=== PATIENT | female | born 1970 | race American Indian/Alaskan Native ===

== ENCOUNTER 2021-11-28 10:01 | Outpatient (CLI) | payer OTHER ==
--- NOTE | 2021-11-28 13:31 | XRay Report ---
Cervical spine 2 views INDICATION: Neck pain FINDINGS: Endplate degenerative changes small anterior posterior disc osteophytes at C5-C6. No prever tebral soft tissue swelling is seen. Alignment appears normal. Facet degenerative changes seen throug hout. IMPRESSION: Discogenic degenerative changes seen throughout spine Signer Name: Quincy Liu MD Signed: 11/28/2021 1:27 PM Workstation Name: [email or web address]
--- NOTE | 2021-11-28 14:07 | XRay Report ---
LEFT SHOULDER 3 VIEWS INDICATION / CLINICAL INFORMATION: LEFT SHOULDER PAIN. COMPARISON: None available. FINDINGS: BONES / JOINT(S): Subchondral cyst formation in the humeral head superolaterally is likely degenerati ve. The joint spaces are well-maintained. There is no evidence of fracture, subluxation or destructiv e lesion. SOFT TISSUES: No significant abnormality. ADDITIONAL FINDINGS: The visualized left lung is clear. IMPRESSION: Subchondral degenerative changes involving the humeral head superolaterally without other significant abnormality. Signer Name: Vladimir العراقي MD Signed: 11/28/2021 2:03 PM Workstation Name: [email or web address]
--- NOTE | 2021-11-28 14:15 | XRay Report ---
Right knee 2 views INDICATION: Knee pain FINDINGS: Alignment appears normal. No acute fracture or dislocation is seen. No large joint effusion IMPRESSION: No acute findings. Signer Name: Quincy Liu MD Signed: 11/28/2021 2:10 PM Workstation Name: [id number]
--- NOTE | 2021-11-28 14:21 | XRay Report ---
LUMBOSACRAL SPINE, 3 VIEWS INDICATION / CLINICAL INFORMATION: BACK PAIN. COMPARISON: None available. FINDINGS: Vertebral body heights and disc spaces are well-preserved. Alignment is normal. No significant degene rative change or evidence for fracture. There is minimal scoliosis noted in the lumbar spine on the AP view. Large amount of stool is present throughout the colon. IMPRESSION: 1. No acute or significant osseous abnormality. 2. Large amount retained stool suggesting constipation. Signer Name: Elza Collado MD Signed: 11/28/2021 2:16 PM Workstation Name: [email or web address]
== END 2021-11-28 10:02 | disposition home or self-care (01) ==
LOC: XRAY 10:01
PROVIDERS: ATTEND Internal Medicine
DX: M19.012 Primary osteoarthritis, left shoulder (principal); M41.86 Other forms of scoliosis, lumbar region; M47.812 Spondylosis without myelopathy or radiculopathy, cervical region; M25.78 Osteophyte, vertebrae
CPT/HCPCS: 72040; 72100